=== PATIENT | male | born 1985 | race Caucasian/White ===

== ENCOUNTER 2020-03-26 16:20 | Emergency (ER) | payer OTHER ==
[~2020-03-26] VITALS: Ht 190.5 cm; Wt 113.4 kg
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
[2020-03-26 16:45] VITALS: BP 127/84
[2020-03-26] MEDS ORDERED: Methocarbamol 750mg tab ORAL ONE (17:00)
[2020-03-26] MEDS ORDERED: Ketorolac 30mg Inj IM ONE (17:00)
[2020-03-26] MEDS ORDERED: Bacitracin Oint UD TOPIC ONE (17:00)
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
[2020-03-26] MEDS ORDERED: LIDODERM700 M1 TOPIC (18:26)
[2020-03-26] MEDS ORDERED: IBU800 MG PO (18:26)
[2020-03-26] MEDS ORDERED: MUPIROCIN22 GM TOPIC (18:26)
[2020-03-26] MEDS ORDERED: ROBAXIN-500MG ORAL (18:26)
[2020-03-26 18:35] VITALS: BP 131/81
--- NOTE | 2020-03-26 18:35 | NUR ---
ED Nurse Note: Pt cleared by health care Provider for discharge. DC instructions/prescription was given and explained to pt and verbalized understanding of teachings. All medical deviecs such as ID band removed. Pt is AAO x4, ambulatory and left with all personal belongings.
== END 2020-03-26 18:35 | disposition home or self-care (01) ==
LOC: EMR 16:49
DX: S80.02XA Contusion of left knee, initial encounter (principal); S80.212A Abrasion, left knee, initial encounter; S39.012A Strain of muscle, fascia and tendon of lower back, initial encounter; V43.62XA Car passenger injured in collision with other type car in traffic accident, initial encounter; Y92.411 Interstate highway as the place of occurrence of the external cause
CPT/HCPCS: 72131; 73562; 96372; 99284; J1885